=== PATIENT | male | born 1975 | race Caucasian/White ===

== ENCOUNTER 2022-09-07 12:54 | Outpatient (CLI) | payer BC, SELFPAY ==
--- NOTE | 2022-09-07 13:00 | CRLHL7_ITS ---
For Patients: As a result of the Century Cures Act, medical imaging exams and procedure reports are released immediately into your electronic medical record. You may view this report before your referring provider. If you have questions, please contact your health care provider. INDICATION: LEFT PALPABLE AREA COMPARISON: none TECHNIQUE: Chapman scale imaging was performed of the scrotum. In addition color Doppler and spectral Doppler analysis was performed of the testes. FINDINGS: The left testicle demonstrates normal arterial and venous blood flow on color Doppler and spectral Doppler analysis. The left testicle has uniform echogenicity with no evidence of a suspicious mass or area of inflammation. The right testis is absent and the left testis measures 5.7 x 2.6 x 3.5 cm. The left epididymis appears normal. There is no evidence of a hydrocele or varicocele. IMPRESSION: Normal ultrasound of the left hemiscrotum. No left testicular mass or torsion. Dictated by Justin Ocampo MD @ 09/08/2022 5:55:45 AM (Electronically Signed)
== END 2022-09-07 12:55 | disposition home or self-care (01) ==
LOC: US 12:55
PROVIDERS: PCP Emergency Medicine; Visit Provider Emergency Medicine
DX: N50.89 Other specified disorders of the male genital organs (principal)
CPT/HCPCS: 76870; 80053; 80061; 93976

== ENCOUNTER 2023-02-09 11:13 | Outpatient (CLI) | payer BC, SELFPAY ==
--- NOTE | 2023-02-09 12:59 | W.ANESCHARGE ---
Anesthesia Charges Start Date/Time Anesthesia Start Date: 02/09/23 Anesthesia Start Time: 11:52 Stop Date/Time Anesthesia Stop Date: 02/09/23 Anesthesia Stop Time: 12:11
--- NOTE | 2023-02-09 13:06 | W.ANESCHARGE ---
Anesthesia Charges Start Date/Time Anesthesia Start Date: 02/09/23 Anesthesia Start Time: 11:52 Stop Date/Time Anesthesia Stop Date: 02/09/23 Anesthesia Stop Time: 12:11
== END 2023-02-09 11:14 | disposition home or self-care (01) ==
LOC: OP CLINIC 11:14
PROVIDERS: PCP Emergency Medicine; Visit Provider Internal Medicine
DX: Z12.11 Encounter for screening for malignant neoplasm of colon (principal); K57.30 Diverticulosis of large intestine without perforation or abscess without bleeding
CPT/HCPCS: 00811; 00812; 45378; J2704